=== PATIENT | female | born 2000 | race Caucasian/White ===

== ENCOUNTER 2021-11-09 15:00 | Emergency (ER) | payer BC ==
[~2021-11-09] VITALS: Ht 170.2 cm; Wt 61.2 kg
[2021-11-09 15:06] VITALS: BP 109/77
--- NOTE | 2021-11-09 15:06 | NUR ---
BIB SELF C/O R EAR PAIN AND SWELLING "MY EARING GOT STUCK." VITALS ARE WITHIN NORMAL LIMITS. BREATHING IS EVEN AND UNLABORED, NO SOB NOTED.
[2021-11-09] MEDS ORDERED: LIDOCAINE 2% JEL UROJET 10 ML MM ONE (15:19)
[2021-11-09] MEDS ORDERED: LIDOCAINE/PRILOCAINE (5GM) 5 GM TUBE TP ONE (15:19)
[2021-11-09] MEDS ORDERED: LIDOCAINE 2% JEL 5 ML TUBE MC ONE (15:30)
--- NOTE | 2021-11-09 16:06 | NUR ---
IKER WILDE AT PT'S BEDSIDE FOR R EAR CARE.
[2021-11-09] MEDS ORDERED: CIPR500T5 PO (16:39)
[2021-11-09] MEDS ORDERED: NEOM28.43 TP (16:40)
--- NOTE | 2021-11-09 16:49 | NUR ---
Patient discharged to home in stable condition. Written and verbal after care instructions given. Patient verbalizes understanding of instruction.
== END 2021-11-09 16:50 | disposition home or self-care (01) ==
LOC: ER 15:06
DX: H61.001 Unspecified perichondritis of right external ear (principal)
CPT/HCPCS: J3490